=== PATIENT | male | born 2000 | race Two or more races ===

== ENCOUNTER 2024-03-16 09:54 | Emergency (ER) | payer SELFPAY ==
[~2024-03-16] VITALS: Ht 172.7 cm; Wt 82.0 kg
[~2024-03-16 09:54] MED LIST: PER60TP TOP
[2024-03-16 10:20] VITALS: BP 136/82; PULSE 99; RESP 16; TEMP 99.7; O2SAT 96
[2024-03-16] MEDS: IBUPROFEN 800 MG TAB PO ONE (10:57)
[2024-03-16] MEDS ORDERED: IBUP-1455 PO (11:18)
== END 2024-03-16 11:24 | disposition home or self-care (01) ==
LOC: ER 09:54
DX: S93.691A Other sprain of right foot, initial encounter (principal); Z79.899 Other long term (current) drug therapy; W01.0XXA Fall on same level from slipping, tripping and stumbling without subsequent striking against object, initial encounter; Y93.89 Activity, other specified; Y92.89 Other specified places as the place of occurrence of the external cause; Y99.8 Other external cause status
CPT/HCPCS: 73630